=== PATIENT | female | born 1955 | race Caucasian/White ===

== ENCOUNTER 2023-09-09 11:57 | Emergency (ER) | payer MEDICARE, OTHER, SELFPAY ==
[2023-09-09 12:04] VITALS: BP 143/71; BMI 27.1
[2023-09-09] MEDS: HyperRAB 1200 UNIT IM (13:18)
[2023-09-09] MEDS: RABAVERT RABIES VACC W-DILUENT 2.5 UNIT IM (13:18)
--- NOTE | 2023-09-09 18:19 | ED.SKININJ ---
HPI-Injury
General
Chief Complaint: Bite
Source: patient
Time Seen by Provider: 09/09/23 12:31
History of Present Illness-Injury
Initial Injury comments:
68yo right hand dominant female presenting for evaluation of a left arm dog bite. She was bitten by a dog 3 days ago while she was on a walk with her friend. She is unsure who the machine ii trimmer is or where they reside. The patient spoke with her daughter
who is a medical professional who encouraged her to go to the ED to get the rabies vaccine. She denies any other concerns at this time.
Phy Exam
General Physical Exam
General Presentation: well appearing and no apparent distress
General age: appears stated age
General Skin: warm and dry
General Habitus: normal
Musculoskeletal Exam
Musculoskeletal Exam: full ROM
Skin Exam
Skin Exam: normal color, warm/dry and other (Small bite wound to anterior L upper arm that is scabbed over. No surrounding erythema or tenderness. No drainage or fluctuance. ROM of R shoulder and elbow intact. 2+ radial pulse. )
Course
Orders/Labs/Results
Orders:
Orders
09/09/23 12:45
Rabies Vaccine ([facility])/Pf [Rabavert Rabies Vacc W-Diluent] 2.5 unit IM .ONCE ONE
09/09/23 12:55
Rabies Immune Globulin/Pf [HyperRAB] 1,200 unit IM NOW STA
Vital Signs
Initial and Last Documented VS:
Initial Vital Signs
Temp Pulse Resp BP Pulse Ox
98.6 F 55 16 143/71 99
09/09/23 12:04 09/09/23 12:09/09/23 12:09/09/23 12:09/09/23 12:04
Last Documented Vital Signs
Temp Pulse Resp BP Pulse Ox
98.6 F 55 16 143/71 99
09/09/23 12:04 09/09/23 12:09/09/23 12:04 09/09/23 12:04 09/09/23 12:04
MDM/Problems Addressed
Differential Diagnosis Includes:
68yoF here with a dog bite to her L upper arm 3 days ago. Here for the rabies vaccine. Unknown who the dog machine ii trimmer is so no way of confirming the dog's vaccination status. No signs of cellulitis or abscess on exam.
First rabies vaccination as well as the rabies immunoglobulin ordered. She was started on a course of Augmentin for infection prophylaxis. She was given a prescription to have the remainder of her rabies vaccinations administered at the infusion
center. ED return precautions discussed. She was discharged in stable condition.
*Critical Care Note
Total Time (30-74mins, 75-104mins- exclusive of procedures): Not Applicable
ED Attending Note
-
Portions of this chart may have been created with voice recognition software.� Occasional wrong word or��sound alike� substitutions may have occurred due to the inherent limitations of voice recognition software.
Discharge Plan
Departure
Patient Disposition: Home (Routine Discharge)
Date of Disposition: 09/09/23
Time of Disposition: 12:45
Patient with high blood pressure during this ER visit?: No
Discharge Problem:
Dog bite of left arm
Instructions: Animal Bites (DC)
Prescriptions:
New
rabies vacc,human diploid (PF) 2.5 unit recon soln
1 ml IM ONCE Qty: 3 0RF
Rx Instructions:
Administer IM on 09/13/23, 09/16/23, and 09/23/23.
amoxicillin-pot clavulanate 875-125 mg tablet
1 tab PO BID Qty: 14 0RF
Adacel(Tdap Adolesn/Adult)(PF) 2 Lf-(2.5-5-3-5 mcg)-5Lf/0.5 mL syringe
0.5 ml IM ONCE Qty: 0.5 0RF
Rx Instructions:
Administer on 09/13/23.
Stand Alone Forms: Rabies Vaccine Post Exp Dosing
Activity Restrictions/Additional Instructions:
Take antibiotics as prescribed.
Please call the infusion center to schedule your next rabies vaccines on 09/12, 09/15, and 09/22.
Return to the ER with any signs of infection.
Interventions
Interventions:
*Risk Screen - Suicide Last Done: 09/09/23 12:04
*General Assessment Last Done: 09/09/23 12:54
*Neglect/Abuse Screening Last Done: 09/09/23 12:04
ED- Fall Risk Assessment Last Done: 09/09/23 12:04
*ED COVID-19 Vaccine History Last Done: 09/09/23 12:54
*Nursing Disposition Last Done: 09/09/23 13:27
ED-Skin Assessment Last Done: 09/09/23 13:27
Discharge Date and Time
Discharge Date/Time: 09/09/23 13:28
Print Language: SAMMARINESE
== END 2023-09-09 13:28 | disposition home or self-care (01) ==
LOC: EMR 11:57
PROVIDERS: EMERGENCY PHYSICIAN Emergency Medicine; FAMILY PHYSICIAN Family Medicine
DX: S41.152A Open bite of left upper arm, initial encounter (principal); W54.0XXA Bitten by dog, initial encounter; Z20.3 Contact with and (suspected) exposure to rabies; Z23 Encounter for immunization; Z29.14 Encounter for prophylactic rabies immune globulin
CPT/HCPCS: 99284; 90471; 96372; 90375; 90675

== ENCOUNTER 2023-09-23 08:24 | Outpatient (RCR) | payer MEDICARE, OTHER, SELFPAY ==
[2023-09-13 11:29] VITALS: BP 139/82
[2023-09-13] MEDS: RABAVERT RABIES VACC W-DILUENT 2.5 UNIT IM (11:38)
[2023-09-16] MEDS: RABAVERT RABIES VACC W-DILUENT 2.5 UNIT IM (08:50)
[2023-09-16 09:00] VITALS: BP 127/69
[2023-09-23 08:53] VITALS: BP 124/53
[2023-09-23] MEDS: RABAVERT RABIES VACC W-DILUENT 2.5 UNIT IM (08:54)
== END 2023-09-23 15:02 | disposition home or self-care (01) ==
LOC: OID 08:24
PROVIDERS: ATTENDING PHYSICIAN Emergency Medicine
DX: Z20.3 Contact with and (suspected) exposure to rabies (principal); Z23 Encounter for immunization
CPT/HCPCS: 90471; 90675